=== PATIENT | male | born 1930 | race Caucasian/White ===

== ENCOUNTER 2020-08-07 16:57 | Emergency (ER) | payer MEDICARE, OTHER ==
[2020-08-07 17:54] LABS: BASOPHIL 1.2 % (0-2); EOSINOPHIL 4.2 % (0-7); HCT 46.5 % (42.0-52.0); HGB 15.7 g/dl (13.2-18.0); LYMPHOCYTE 27.9 % (15-48); MCH 28.9 pg (25.0-31.0); MCHC 33.8 g/dL (32.0-36.0); MCV 85.5 fL (78.0-100.0); MONOCYTE 11.6 % (0-12); MPV 11.1 fL (6.0-9.5); NEUTROPHIL 54.7 % (41-80); NRBC 0; PLT 260 K/uL (150-400); RBC 5.44 M/uL (4.70-6.00); WBC 7.6 K/uL (4.0-10.5)
[2020-08-07 18:07] LABS: ALBUMIN 3.5 g/dL (3.4-5.0); BILIRUBIN - TOTAL 1.3 mg/dL (0.2-1.0); BUN/CREAT RATIO (CALC) 14.9 RATIO; CREATININE 1.14 mg/dL (0.67-1.17); GLOBULIN (CALCULATION) 3.3 g/dL; POTASSIUM 3.9 mmol/L (3.5-5.1); TOTAL PROTEIN 6.8 g/dL (6.4-8.2)
[2020-08-07 18:17] LABS: BILIRUBIN NEGATIVE (NEGATIVE); BLOOD NEGATIVE Ery/uL (NEGATIVE); CLARITY CLEAR (CLEAR); COLOR YELLOW (YELLOW); GLUCOSE (U) NORMAL (NORMAL); LEUKOCYTES NEGATIVE Leu/uL (NEGATIVE); NITRITE NEGATIVE (NEGATIVE); PROTEIN NEGATIVE (NEGATIVE); SPECIFIC GRAVITY 1.025 (1.001-1.030); UROBILINOGEN 0.2 mg/dL (0.2-1.0)
== END 2020-08-07 18:36 | disposition home or self-care (01) ==
LOC: FER 16:57
PROVIDERS: Emergency Medicine
DX: K80.20 Calculus of gallbladder without cholecystitis without obstruction (principal); Z88.0 Allergy status to penicillin
CPT/HCPCS: 36415; 74022; 80053; 81003; 83690; 85025

== ENCOUNTER 2020-08-25 16:10 | Emergency (ER) | payer MEDICARE, OTHER ==
[2020-08-25 20:28] LABS: BASOPHIL 0.6 % (0-2); EOSINOPHIL 0.1 % (0-7); HCT 48.5 % (42.0-52.0); HGB 16.3 g/dl (13.2-18.0); LYMPHOCYTE 10.7 % (15-48); MCH 28.6 pg (25.0-31.0); MCHC 33.6 g/dL (32.0-36.0); MCV 85.2 fL (78.0-100.0); MONOCYTE 9.5 % (0-12); NEUTROPHIL 78.7 % (41-80); NRBC 0; PLT 254 K/uL (150-400); RBC 5.69 M/uL (4.70-6.00); RDW 14.2 % (11.5-14.0); WBC 14.2 K/uL (4.0-10.5)
[2020-08-25 21:02] LABS: BILIRUBIN 1+ mg/dL (NEGATIVE); BLOOD NEGATIVE Ery/uL (NEGATIVE); CLARITY CLEAR (CLEAR); COLOR YELLOW (YELLOW); GLUCOSE (U) NORMAL (NORMAL); LEUKOCYTES NEGATIVE Leu/uL (NEGATIVE); NITRITE NEGATIVE (NEGATIVE); PROTEIN TRACE (LOW) mg/dL (NEGATIVE); SPECIFIC GRAVITY >=1.030 (1.001-1.030); UROBILINOGEN 0.2 mg/dL (0.2-1.0); pH 5.5 (5.0-9.0)
[2020-08-25 21:08] LABS: MUCOUS TRACE; SQUAMOUS EPITHELIAL CELLS RARE
[2020-08-25 21:15] LABS: ALBUMIN 3.5 g/dL (3.4-5.0); BILIRUBIN - TOTAL 2.7 mg/dL (0.2-1.0); BUN/CREAT RATIO (CALC) 15.3 RATIO; CREATININE 1.11 mg/dL (0.67-1.17); GLOBULIN (CALCULATION) 4.2 g/dL; POTASSIUM 3.9 mmol/L (3.5-5.1); TOTAL PROTEIN 7.7 g/dL (6.4-8.2)
[2020-08-25 21:24] LABS: LACTIC ACID 1.7 mmol/L (0.4-1.9)
== END 2020-08-26 02:27 | disposition other institution (70) ==
LOC: FER 16:10
PROVIDERS: Emergency Medicine Emergency Medical Services
DX: R10.11 Right upper quadrant pain (principal); R11.10 Vomiting, unspecified; K80.20 Calculus of gallbladder without cholecystitis without obstruction; I51.9 Heart disease, unspecified; Z88.0 Allergy status to penicillin; Z98.890 Other specified postprocedural states; Z95.5 Presence of coronary angioplasty implant and graft
CPT/HCPCS: 36415; 80053; 81001; 82150; 83605; 83690; 84145; 84484; 85025; 93005; J1885; J7040; Q9967